=== PATIENT | female | born 1990 | race Caucasian/White ===

== ENCOUNTER 2024-06-16 18:09 | Emergency (ER) | payer OTHER ==
[2024-06-16 18:17] VITALS: BP 126/73; PULSE 94; RESP 17; TEMP 99.3; BMI 31.4
[2024-06-16] MEDS ORDERED: ACETAMINOPHEN 500 MG TABLET (FP) ONE (19:36)
[2024-06-16 19:53] LABS: BASO % 0.9 % (0-2.0); EOS % 0.8 % (0-4.5); HEMATOCRIT 40.2 % (32.4-45.2); HEMOGLOBIN 13.2 GM/dL (10.7-15.3); LYMPH % 29.2 % (8-40); MCHC 32.8 g/dl (32.0-36.0); MEAN CELL VOLUME 91.5 fl (80-96); MEAN PLT VOLUME 9.2 fl (7.5-11.1); NEUT % 63.1 % (42.8-82.8); PLATELET COUNT 259 10^3/uL (134-434); RBC 4.39 M/mm3 (3.60-5.2); RDW 14.3 % (11.6-15.6); WHITE BLOOD COUNT 9.9 K/mm3 (4.0-10.0)
[2024-06-16] MEDS: ACETAMINOPHEN 500 MG TABLET (FP) PO ONE (19:58)
[2024-06-16 20:03] LABS: INR 0.99 (0.83-1.09); PROTHROMBIN TIME (PATIENT) 10.8 SEC (9.7-13.0)
[2024-06-16 20:06] LABS: ACTIVATED PTT 30.8 SECONDS (25.2-36.5)
[2024-06-16 20:17] LABS: CHLORIDE 106 mmol/L (98-107); POTASSIUM 4.3 mmol/L (3.5-5.1); SODIUM 139 mmol/L (136-145)
[2024-06-16 20:20] LABS: ANION GAP 7 mmol/L (4-13); BLOOD UREA NITROGEN 13.5 mg/dL (7-18); CO2 26 mmol/L (21-32); GLUCOSE,RANDOM 101 mg/dL (74-106); MAGNESIUM 2.3 mg/dL (1.8-2.4)
[2024-06-16 20:23] LABS: CREATININE 0.8 mg/dL (0.55-1.3); SGOT/AST 12 U/L (15-37); SGPT/ALT 19 U/L (13-61)
[2024-06-16 20:24] LABS: BILIRUBIN,TOTAL 0.7 mg/dL (0.2-1); TOT PROT 8.1 g/dl (6.4-8.2)
[2024-06-16 20:25] LABS: ALK PHOS 57 U/L (45-117)
[2024-06-16 21:09] LABS: HIV INTERPRETATION NEGATIVE (NEGATIVE)
== END 2024-06-16 20:52 | disposition home or self-care (01) ==
LOC: JER 18:09
DX: R07.89 Other chest pain (principal); F41.9 Anxiety disorder, unspecified
CPT/HCPCS: 36415; 71046-TC-FY; 80053; 82550; 82553; 83735; 84443; 84484; 84703; 85025; 85610; 85730; 86803; 87389; 93005; 93010; 99284-25